=== PATIENT | female | born 1970 | race Caucasian/White ===

== ENCOUNTER 2016-08-04 14:27 | Inpatient (IN) | payer OTHER ==
[~2016-08-04] VITALS: Ht 168.9 cm; Wt 58.0 kg
[2016-08-04 15:19] VITALS: BP 118/71
--- NOTE | 2016-08-04 15:45 | DIAGNOSTIC IMAGING REPORT ---
PROCEDURE: XR CHEST 2 VIEW INDICATION: Pneumonia TECHNIQUE: PA and lateral views. COMPARISON: None. FINDINGS: There are bibasilar infiltrates. There is a right pleural effusion and a small left pleural effusion. Heart size is normal. IMPRESSION: 1. Bibasilar infiltrates and bilateral effusions
[2016-08-04] MEDS ORDERED: MIRAPEX0.25 MG PO (16:45)
[2016-08-04] MEDS ORDERED: PROAIR HFA IN (16:45)
[2016-08-04 18:43] VITALS: BP 96/52
--- NOTE | 2016-08-04 21:31 | HISTORY AND PHYSICAL ---
ADMITTED: 08/04/2016 CHIEF COMPLAINT: 1. Shortness of breath HISTORY OF PRESENT ILLNESS: The patient developed upper respiratory infection on 07/26/2016. She had increasing cough. She was seen at a walk-in clinic where a chest x-ray and flu test were apparently negative. This was at the [facility]/walk -in clinic. She was treated with albuterol MDI and a codeine cough syrup, which caused itching. She noted the cough became more productive after that. She has had worsening appetite and feeling nauseated off and on since that time. She has been taking fluids well, but not eating solids. She has been feeling increasingly weak. She notes chest pain with coughing and shortness of breath with any exertion. MEDICAL/SURGICAL HISTORY: Past medical history: Remarkable for restless legs syndrome. Past surgical history: Cervical laser surgery, wisdom tooth removal in 1987, hysterectomy 2006, D&C 2003, T&A 2003, breast implants. MEDICATIONS: 1. ProAir 1-2 puffs b.i.d. p.r.n. 2. Mirapex 0.125 mg p.o. at bedtime p.r.n. restless legs. ALLERGIES: 1. NARCOTICS. 2. CODEINE. SOCIAL HISTORY: female. [employer]. Works for [employer] at [employer]. Has 2 children and enjoys camping and soccer. FAMILY HISTORY: Mother has hypertension. Father has hyperlipidemia. One sister has hyperlipidemia. Maternal grandmother has breast cancer. REVIEW OF SYSTEMS: Remarkable for respiratory symptomatology as noted above. Neurologic: Negative for headache, seizures, coordination of balance, difficulty with vision. Denies blurry vision, double vision or scotoma. Hearing: Denies tinnitus, hearing loss, or ear pain. Cardiac: No chest pain is only pleuritic, otherwise does not have chest pain. Denies palpitations. No prior history of heart disease. No dizziness. Gastrointestinal: Positive for nausea and vomiting, denies diarrhea, constipation, bright red blood per rectum or melena. Genitourinary: Denies dysuria, hematuria, or other symptomatology. PHYSICAL EXAMINATION: VITAL SIGNS: Temperature 98.1, pulse 80, respirations 20, blood pressure 96/52, SaO2 91% on 2 L of oxygen. HEENT: Clear. NECK: Supple without adenopathy or thyromegaly. CHEST: Positive rhonchi diffusely with rales in both bases. Marked coughing on attempts to take deep breaths. HEART: Regular rate and rhythm without murmur. ABDOMEN: Positive bowel sounds. Soft, nontender, without hepatosplenomegaly or masses. BACK: Straight without CVA tenderness. EXTREMITIES: Without cyanosis, clubbing, or edema. NEUROLOGIC: Intact and symmetric. GENITAL: Deferred. RECTAL: Deferred. BREASTS: Deferred. LAB/IMAGING: Labs: WBC 18.5, hemoglobin 14.3, hematocrit 43.8, platelets 252,000. Differential reveals 56% neutrophils, 4% lymphocytes, 31% bands. Sodium 133, potassium 3.6, chloride 96, CO2 30, BUN 11, creatinine 1.0, glucose 115. AST 24, ALT 32, alk phos 93. Chest x-ray: Reveals bibasilar infiltrates and bilateral effusions. IMPRESSION: 1. Pneumonia, bibasilar. 2. History of restless legs syndrome. PLAN: Admit for IV antibiotics, IV hydration, IV pain control and antiemetics. Anticipate 2-3 day hospitalization.
[2016-08-04 22:44] VITALS: BP 100/53
[2016-08-05 02:36] VITALS: BP 112/68
[2016-08-05 06:54] VITALS: BP 113/74
--- NOTE | 2016-08-05 07:22 | Progress Note ---
Subjective General Patient admitted 08/04 with upper respiratory infection since 07/26/2016, seen at a walk-in clinic where a chest x-ray and flu test were apparently negative. This was at the [facility]/walk -in clinic, treated with albuterol MDI and a codeine cough syrup, which caused itching. Admitted with worsening cough, sob, streaks of blood in sputum, nausea and weakness. Through night patient has had persistent severe cough. Sleeping little with cough medication. Still nauseated. Not sob on O2. Physical Exam Vital Signs / I&Os Vital Signs Date Time Temp Pulse Resp B/P Pulse O2 O2 Flow FiO2 Ox Delivery Rate 08/05 0654 100.0 90 24 113/74 92 Nasal 2.0 Cannula 08/05 0236 97.9 77 22 112/68 95 Nasal 2.0 Cannula 08/05 0008 Nasal 2.0 Cannula 08/04 2244 98.6 82 18 100/53 90 Nasal 2.0 Cannula 08/04 1843 98.1 80 20 96/52 91 Nasal 2.0 Cannula 08/04 1700 Nasal 2.0 Cannula 08/04 1613 94 Nasal 2.0 Cannula 08/04 1519 98.6 84 20 118/71 90 Room Air I&O 08/04 0800 08/04 1600 08/05 0000 Intake Total 803 Output Total 1325 Balance -522 General Appearance Alert, Oriented X3, Cooperative Lungs Bilateral rhonchi and rales. Cardiovascular Regular rate and rhythm Abdomen Normal bowel sounds, Soft, No tenderness Extremities No edema Skin No Rashes LAB Results Laboratory Tests 08/04 08/05 1520 0530 Chemistry Plasma Sodium (136 - 145 mmol/L) 133 Plasma Potassium (3.5 - 5.1 mmol/L) 3.6 Plasma Chloride (98 - 107 mmol/L) 96 CO2 (Enzymatic) (21 - 32 mmol/L) 30 BUN (7 - 18 mg/dL) 11 Creatinine (0.6 - 1.3 mg/dL) 1.0 Est GFR ( Amer) (mL/min) >60 Est GFR (Non-Af Amer) (mL/min) >60 Glucose (70 - 110 mg/dL) 115 Plasma Calcium (8.5 - 10.1 mg/dL) 8.4 Plasma Magnesium (1.8 - 2.4 mg/dL) 2.4 Total Bilirubin (0.0 - 1.0 mg/dL) 0.6 AST (15 - 37 U/L) 24 ALT (12 - 78 U/L) 32 Alkaline Phosphatase (46 - 116 U/L) 93 Total Protein (6.4 - 8.2 g/dL) 7.2 Albumin (3.3 - 5.0 g/dL) 2.6 Hematology WBC (4.5 - 11.5 K/uL) 18.5 14.6 RBC (4.00 - 5.20 M/uL) 4.49 3.97 Hgb (12.0 - 16.0 gm/dL) 14.3 12.6 Hct (36.0 - 46.0 %) 43.8 38.3 MCV (80 - 100 fL) 97 97 MCH (26 - 34 pg) 32 32 RDW (11.6 - 14.8 %) 13.7 14.3 Neut % (Auto) (50 - 75 %) 56 21 Lymph % (Auto) (25 - 40 %) 4 18 [place] % (Auto) (3 - 14 %) 7 16 Eos % (Auto) (0 - 4 %) 1 1 Baso % (Auto) (0 - 2 %) 0 2 Band Neutrophils % (0 - 8 %) 31 42 Metamyelocytes % (0 - 1 %) 1 0 Myelocytes (0 - 1 %) 0 0 Other Cell Type 0 0 Toxic Granulation 1+ Plt Count, EDTA (150 - 400 K/uL) 252 282 RBC Morphology NORMAL Anisocytosis (manual) 1+ PUBS MCHC (31 - 37 g/dL) 33 33 Microbiology Date/Time Procedure - Status Source Growth 08/04 1630 Influenza Screen - COMP NASALPHAR Assessment and Plan Problem List 1. Pneumonia Plan On appropriate antibiotics.
[2016-08-05 10:43] VITALS: BP 94/59
[2016-08-05 14:10] VITALS: BP 105/69
[2016-08-05 18:30] VITALS: BP 107/72
[2016-08-05 22:44] VITALS: BP 104/66
[2016-08-06 02:59] VITALS: BP 121/81
[2016-08-06 07:19] VITALS: BP 107/77
[2016-08-06 11:44] VITALS: BP 106/78
[2016-08-06 14:26] VITALS: BP 114/77
[2016-08-06 18:40] VITALS: BP 119/82; BP 125/81
--- NOTE | 2016-08-06 20:41 | Progress Note ---
Subjective General Fevers have resolved. No chest pain. + cough and shortness of breath, but mildly improved. No abd pain. No constipation or diarrhea. Physical Exam Vital Signs / I&Os Vital Signs Date Time Temp Pulse Resp B/P Pulse O2 O2 Flow FiO2 Ox Delivery Rate 08/06 1840 37.2 91 21 119/82 91 Nasal 2.0 Cannula 08/06 1426 36.9 84 21 114/77 91 Nasal 2.0 Cannula 08/06 1144 36.8 72 21 106/78 93 Nasal 2.0 Cannula 08/06 1000 Nasal 2.0 Cannula 08/06 0800 2.0 08/06 0719 36.8 71 24 107/77 91 Nasal 2.0 Cannula 08/06 0259 37.1 88 20 121/81 93 Nasal 2.0 Cannula 08/06 0215 Nasal 2.0 Cannula 08/05 2244 36.8 72 20 104/66 95 Nasal 3.0 Cannula I&O 08/06 0000 08/05 1600 08/05 0800 Intake Total 480 2186 1228 Output Total 1650 1600 300 Balance -1170 586 928 General Appearance Alert, Oriented X3, Cooperative, No acute distress Lungs Course diffusely with wheezing in LUQ. Crackles in bilateral lung bases. Cardiovascular Regular rate and rhythm, Normal S1 and S2, No murmurs, gallops, rubs Abdomen Normal bowel sounds, Soft, No tenderness Extremities No edema Assessment and Plan Problem List 1. Pneumonia Plan Will add albuterol and duonebs. Staph on sputum culture, however, no risk factors. Patient clinically improved on current antibiotics. Contamination suspected. If worse, will start vanco, however, will monitor for now.
[2016-08-06 22:29] VITALS: BP 103/65
[2016-08-07 02:02] VITALS: BP 109/73
[2016-08-07 05:06] VITALS: BP 129/76
--- NOTE | 2016-08-07 07:46 | Progress Note ---
Subjective General 46YO FEMALE with pneumonia. Pt reports no improvement in severe cough with chest pain on coughing or deep breathing. Feeling nauseated this morning. Had severe palpitations with breathing treatment this morning which made her very anxious. She felt improved with a mask in place. SOB on getting up to bathroom and felt panicky with inability to get enough air. Physical Exam Vital Signs / I&Os Vital Signs Date Time Temp Pulse Resp B/P Pulse O2 O2 Flow FiO2 Ox Delivery Rate 08/07 0650 99.3 92 21 95 VentI-Mask 5.0 08/07 0506 103 22 129/76 88 Nasal 2.0 Cannula 08/07 0336 2.0 08/07 0202 99.0 62 16 109/73 92 Nasal 2.0 Cannula 08/06 2229 99.0 70 16 103/65 91 Nasal 2.0 Cannula 08/06 2049 2.0 08/06 1950 Nasal 2.0 Cannula 08/06 1840 99.0 91 21 119/82 91 Nasal 2.0 Cannula 08/06 1426 98.4 84 21 114/77 91 Nasal 2.0 Cannula 08/06 1144 98.2 72 21 106/78 93 Nasal 2.0 Cannula 08/06 1000 Nasal 2.0 Cannula 08/06 0800 2.0 I&O 08/06 0800 08/06 1600 08/07 0000 Intake Total 3778 823 8786 Output Total 900 1425 1200 Balance 402 -975 1034 General Appearance Alert, Mild distress Lungs Diffuse rhonchi and wheeze. Cardiovascular Regular rate and rhythm Abdomen Soft, No tenderness Extremities No edema Skin No Rashes Psych/Mental Status Anxious. LAB Results Laboratory Tests 08/07 0555 Chemistry Plasma Sodium (136 - 145 mmol/L) 137 Plasma Potassium (3.5 - 5.1 mmol/L) 3.4 Plasma Chloride (98 - 107 mmol/L) 102 CO2 (Enzymatic) (21 - 32 mmol/L) 27 BUN (7 - 18 mg/dL) 6 Creatinine (0.6 - 1.3 mg/dL) 0.8 Est GFR ( Amer) (mL/min) >60 Est GFR (Non-Af Amer) (mL/min) >60 Glucose (70 - 110 mg/dL) 99 Plasma Calcium (8.5 - 10.1 mg/dL) 7.7 Total Bilirubin (0.0 - 1.0 mg/dL) 0.4 AST (15 - 37 U/L) 33 ALT (12 - 78 U/L) 42 Alkaline Phosphatase (46 - 116 U/L) 74 Total Protein (6.4 - 8.2 g/dL) 5.3 Albumin (3.3 - 5.0 g/dL) 1.7 Hematology WBC (4.5 - 11.5 K/uL) 16.4 RBC (4.00 - 5.20 M/uL) 3.58 Hgb (12.0 - 16.0 gm/dL) 11.4 Hct (36.0 - 46.0 %) 34.6 MCV (80 - 100 fL) 97 MCH (26 - 34 pg) 32 RDW (11.6 - 14.8 %) 14.3 Plt Count, EDTA (150 - 400 K/uL) 369 PUBS MCHC (31 - 37 g/dL) 33 Assessment and Plan Problem List 1. Pneumonia Plan CXR today and start vancomycin to cover staph as pt is not improved. Will discuss nebulized treatments with RT to minimize tachycardia.
--- NOTE | 2016-08-07 10:14 | DIAGNOSTIC IMAGING REPORT ---
PROCEDURE: XR CHEST 2 VIEW INDICATION: pneumonia, follow-up TECHNIQUE: PA and lateral view. COMPARISON: None. FINDINGS: Progression of large right and moderate left basilar pneumonia with small pleural effusions bilaterally. Patchy infiltrate in the left upper lobe. Heart size and part vessels are normal. The bones are unremarkable. IMPRESSION: 1. Progression of bibasilar pneumonia with small pleural effusions
[2016-08-07 11:12] VITALS: BP 106/73
[2016-08-07 14:31] VITALS: BP 109/70
[2016-08-07 18:17] VITALS: BP 110/71
[2016-08-07 23:00] VITALS: BP 123/76
[2016-08-08 06:43] VITALS: BP 120/76
[2016-08-08 10:15] VITALS: BP 114/67
[2016-08-08 15:00] VITALS: BP 124/67
[2016-08-08 18:39] VITALS: BP 129/66
--- NOTE | 2016-08-08 20:09 | Progress Note ---
Subjective General 46yo female with pneumonia and MRSA positive sputum culture. Biofire test done today due to flu like pattern of illness but it was negative. Pt feels slight improvement overall but still coughing and sob. Some puffiness in feet. Physical Exam Vital Signs / I&Os Vital Signs Date Time Temp Pulse Resp B/P Pulse O2 O2 Flow FiO2 Ox Delivery Rate 08/08 1839 97.7 82 20 129/66 96 Nasal 4.0 Cannula 08/08 1500 97.7 87 20 124/67 92 Mask 4.0 08/08 1015 97.3 71 22 114/67 94 Mask 7.0 08/08 1007 6.0 08/08 0643 98.1 67 22 120/76 91 Mask 7.0 08/07 2330 Mask 7.0 08/07 2300 98.4 89 22 123/76 93 Mask 7.0 08/07 2128 7.0 I&O 08/07 0800 08/07 1600 08/08 0000 Intake Total 1627 1490 938 Output Total 750 2000 1200 Balance 877 -510 -262 General Appearance Alert, Oriented X3, Cooperative, Mild distress Lungs Diffuse rhonchi. Cardiovascular Regular rate and rhythm Abdomen Normal bowel sounds, Soft, No tenderness Extremities No edema LAB Results Laboratory Tests 08/08 08/08 0540 0830 Chemistry Plasma Sodium (136 - 145 mmol/L) 136 Plasma Potassium (3.5 - 5.1 mmol/L) 4.6 Plasma Chloride (98 - 107 mmol/L) 103 CO2 (Enzymatic) (21 - 32 mmol/L) 25 BUN (7 - 18 mg/dL) 8 Creatinine (0.6 - 1.3 mg/dL) 0.7 Est GFR ( Amer) (mL/min) >60 Est GFR (Non-Af Amer) (mL/min) >60 Glucose (70 - 110 mg/dL) 229 Plasma Calcium (8.5 - 10.1 mg/dL) 7.8 Total Bilirubin (0.0 - 1.0 mg/dL) 0.3 AST (15 - 37 U/L) 78 ALT (12 - 78 U/L) 76 Alkaline Phosphatase (46 - 116 U/L) 76 Total Protein (6.4 - 8.2 g/dL) 5.1 Albumin (3.3 - 5.0 g/dL) 1.8 Hematology WBC (4.5 - 11.5 K/uL) 16.8 RBC (4.00 - 5.20 M/uL) 3.79 Hgb (12.0 - 16.0 gm/dL) 11.9 Hct (36.0 - 46.0 %) 36.8 MCV (80 - 100 fL) 97 MCH (26 - 34 pg) 32 RDW (11.6 - 14.8 %) 14.9 Neut % (Auto) (50 - 75 %) 80 Lymph % (Auto) (25 - 40 %) 8 [place] % (Auto) (3 - 14 %) 3 Eos % (Auto) (0 - 4 %) 0 Baso % (Auto) (0 - 2 %) 0 Band Neutrophils % (0 - 8 %) 7 Metamyelocytes % (0 - 1 %) 1 Myelocytes (0 - 1 %) 1 Other Cell Type 0 Plt Count, EDTA (150 - 400 K/uL) 421 PUBS MCHC (31 - 37 g/dL) 33 Toxicology Vancomycin Trough (10.0 - 20.0 ug/mL) 17.8 Assessment and Plan Problem List 1. Pneumonia Plan Continue antibiotics and repeat labs in AM. PICC line ordered.
[2016-08-08 22:15] VITALS: BP 117/80
[2016-08-09 02:50] VITALS: BP 122/77
[2016-08-09 06:20] VITALS: BP 126/77
[2016-08-09 11:00] VITALS: BP 126/58
--- NOTE | 2016-08-09 11:35 | DIAGNOSTIC IMAGING REPORT ---
PROCEDURE: XR CHEST 1 VIEW INDICATION: PICC LINE PLACEMENT, initial encounter TECHNIQUE: Portable AP view 11:09 a.m. COMPARISON: Chest x-ray 08/07/2016 FINDINGS: Interval placement of a left PICC line with the distal end in the SVC but with an L-shaped bend 3 cm from the tip. Moderate bibasilar infiltrates , right greater than left with small bilateral pleural effusions, unchanged. Diffuse increased interstitial markings. Bones are unremarkable . IMPRESSION: 1. Left PICC line in satisfactory position but with an L-shaped bend distally, which may or may not be functional. 2. Bilateral pneumonia and pleural effusions 3. Results discussed with respiratory (Keegan) .
--- NOTE | 2016-08-09 14:01 | Progress Note ---
Subjective General Feels improved by tomorrow. Taking po ok, but still decreased. no nausea, vomitting, diarrhea, constipation. No abd pain. Coughing significantly improved. Physical Exam Vital Signs / I&Os Vital Signs Date Time Temp Pulse Resp B/P Pulse O2 O2 Flow FiO2 Ox Delivery Rate 08/09 1323 Nasal 4.0 Cannula 08/09 1102 62 20 92 Nasal 4.0 Cannula 08/09 1100 36.6 93 22 126/58 87 Nasal 4.0 Cannula 08/09 0800 4.0 08/09 0643 93 Nasal 4.0 Cannula 08/09 0620 36.6 64 20 126/77 95 Mask 4.0 08/09 0250 36.8 71 22 122/77 95 Mask 4.0 08/09 0239 Mask 4.0 08/09 0058 93 Mask 4.0 08/08 2215 36.5 66 20 117/80 91 Mask 4.0 08/08 1839 36.5 82 20 129/66 96 Nasal 4.0 Cannula 08/08 1630 Mask 4.0 08/08 1500 36.5 87 20 124/67 92 Mask 4.0 I&O 08/09 0000 08/08 1600 08/08 0800 Intake Total 1808 1640 1112 Output Total 1900 1750 1600 Balance -92 -110 -488 General Appearance Alert, Oriented X3, Cooperative, No acute distress Lungs Crackles and wheezing in bilateral lower ernandez posteriorly. Cardiovascular Regular rate and rhythm, Normal S1 and S2, No murmurs, gallops, rubs Abdomen Normal bowel sounds, Soft, No tenderness Extremities No edema Assessment and Plan Problem List 1. MRSA (methicillin resistant staphylococcus aureus) pneumonia Plan Signifcant worsening WBC today likely from steroids. Patient clinically improved. yeast in sputum culture. Will treat empirically. Will try to decrease steroids, however, if worse, will increase steroids again. 2. Yeast infection Plan Started antifungal.
[2016-08-09 14:22] VITALS: BP 123/67
--- NOTE | 2016-08-09 16:26 | DIAGNOSTIC IMAGING REPORT ---
PROCEDURE: XR CHEST 1 VIEW INDICATION: PICC ADJUSTMENT TECHNIQUE: Portable AP view 04:06 p.m. COMPARISON: Chest x-ray 08/09/2016 11:09 a.m. FINDINGS: Left PICC line has been adjusted with the tip at the SVC/right atrial junction. Previously noted kink has resolved. No changes in the bilateral pneumonia and pleural effusions. IMPRESSION: 1. Left PICC line in satisfactory position to 2. Bilateral pneumonia and pleural effusions 3. Results discussed with respiratory (Tito) .
[2016-08-09 18:01] VITALS: BP 120/80
[2016-08-09 22:06] VITALS: BP 124/76
[2016-08-10 02:04] VITALS: BP 140/86
[2016-08-10 06:41] VITALS: BP 125/77
--- NOTE | 2016-08-10 07:24 | Progress Note ---
Subjective General 46yo female with pneumonia and MRSA positive sputum culture. Biofire test done today due to flu like pattern of illness but it was negative. Cough is now nonproductive but still frequent and painful. Hurts in anterior mid chest and below shoulder blades with cough. Denies nausea. Some diarrhea last night. Physical Exam Vital Signs / I&Os Vital Signs Date Time Temp Pulse Resp B/P Pulse O2 O2 Flow FiO2 Ox Delivery Rate 08/10 0641 97.3 55 18 125/77 93 Nasal 4.0 Cannula 08/10 0305 Nasal 4.0 Cannula 08/10 0204 97.7 63 20 140/86 95 Nasal 4.0 Cannula 08/09 2206 97.5 49 16 124/76 94 Nasal 4.0 Cannula 08/09 1801 97.5 70 24 120/80 95 Nasal 4.0 Cannula 08/09 1615 Nasal 4.0 Cannula 08/09 1422 97.3 56 20 123/67 93 Nasal 4.0 Cannula 08/09 1323 Nasal 4.0 Cannula 08/09 1102 62 20 92 Nasal 4.0 Cannula 08/09 1100 97.9 93 22 126/58 87 Nasal 4.0 Cannula 08/09 0800 4.0 I&O 08/09 0800 08/09 1600 08/10 0000 Intake Total 1282 633 952 Output Total 1200 1010 1700 Balance 82 -377 -748 General Appearance Alert, Oriented X3, Cooperative Lungs Bilateral rhonchi still. Cardiovascular Regular rate and rhythm Abdomen Normal bowel sounds, Soft, No tenderness Extremities No edema Skin No Rashes LAB Results Laboratory Tests 08/09 08/09 08/10 0745 0745 0600 Chemistry Plasma Sodium (136 - 145 mmol/L) 138 138 Plasma Potassium (3.5 - 5.1 mmol/L) 4.3 4.3 Plasma Chloride (98 - 107 mmol/L) 104 105 CO2 (Enzymatic) (21 - 32 mmol/L) 26 26 BUN (7 - 18 mg/dL) 11 13 Creatinine (0.6 - 1.3 mg/dL) 0.8 0.8 Est GFR ( Amer) (mL/min) >60 >60 Est GFR (Non-Af Amer) (mL/min) >60 >60 Glucose (70 - 110 mg/dL) 131 132 Hemoglobin A1c % (4.5 - 6.2 %) 5.7 Plasma Calcium (8.5 - 10.1 mg/dL) 8.2 8.0 Plasma Magnesium (1.8 - 2.4 mg/dL) 2.0 Total Bilirubin (0.0 - 1.0 mg/dL) 0.3 0.3 AST (15 - 37 U/L) 109 63 ALT (12 - 78 U/L) 128 131 Alkaline Phosphatase (46 - 116 U/L) 69 64 Total Protein (6.4 - 8.2 g/dL) 5.4 5.3 Albumin (3.3 - 5.0 g/dL) 1.8 1.8 Hematology WBC (4.5 - 11.5 K/uL) 24.7 19.1 RBC (4.00 - 5.20 M/uL) 3.63 3.67 Hgb (12.0 - 16.0 gm/dL) 11.6 11.7 Hct (36.0 - 46.0 %) 35.2 35.6 MCV (80 - 100 fL) 97 97 MCH (26 - 34 pg) 32 32 RDW (11.6 - 14.8 %) 14.6 14.1 Neut % (Auto) (50 - 75 %) 89 93.2 Lymph % (Auto) (25 - 40 %) 7 4.2 [place] % (Auto) (3 - 14 %) 1 2.5 Eos % (Auto) (0 - 4 %) 0 0 Baso % (Auto) (0 - 2 %) 0 0.1 Band Neutrophils % (0 - 8 %) 1 Metamyelocytes % (0 - 1 %) 1 Myelocytes (0 - 1 %) 1 Other Cell Type 0 Plt Count, EDTA (150 - 400 K/uL) 445 432 Hypochromic-Microcytic 2+ PUBS MCHC (31 - 37 g/dL) 33 33 Assessment and Plan Problem List 1. Pneumonia Plan Continue antibiotics. Encouraging changes in WBC, calming pulse and decreased O2 demand noted. 2. MRSA (methicillin resistant staphylococcus aureus) pneumonia Plan Continue vanco. 3. Yeast infection Plan Antifungal treatment started.
[2016-08-10 10:41] VITALS: BP 124/72
[2016-08-10 14:44] VITALS: BP 125/84
[2016-08-10 18:40] VITALS: BP 120/80
[2016-08-10 22:37] VITALS: BP 152/88
[2016-08-11 02:52] VITALS: BP 125/77
[2016-08-11 07:11] VITALS: BP 128/84
[2016-08-11 10:38] VITALS: BP 123/79
[2016-08-11 14:40] VITALS: BP 118/72
--- NOTE | 2016-08-11 14:54 | Progress Note ---
Subjective General 46yo female with pneumonia and MRSA positive sputum culture. Biofire test done today due to flu like pattern of illness but it was negative. Cough is now nonproductive but still frequent and painful. Hurts in anterior mid chest and below shoulder blades with cough. Feeling improved overal, sitting up straighter , smiling and talking more. Still hurts to cough though. Physical Exam Vital Signs / I&Os Vital Signs Date Time Temp Pulse Resp B/P Pulse O2 O2 Flow FiO2 Ox Delivery Rate 08/11 1440 97.7 75 16 118/72 95 Nasal 4.0 Cannula 08/11 1038 97.5 52 16 123/79 95 Nasal 4.0 Cannula 08/11 1020 4.0 08/11 0711 97.9 54 16 128/84 96 Nasal 4.0 Cannula 08/11 0252 98.4 57 16 125/77 93 Nasal 4.0 Cannula 08/11 0056 Nasal 4.0 Cannula 08/10 2237 97.9 64 16 152/88 97 Nasal 4.0 Cannula 08/10 2221 4.0 08/10 1840 98.4 68 20 120/80 96 Nasal 4.0 Cannula I&O 08/10 0800 08/10 1600 08/11 0000 Intake Total 1131 240 765 Output Total 1600 3600 2000 Balance -469 -3360 -1235 General Appearance Alert, Oriented X3, Cooperative Lungs Few crackles bilaterally without wheezes. Cardiovascular Regular rate and rhythm Abdomen Normal bowel sounds, Soft, No tenderness Extremities No edema Skin No Rashes LAB Results Laboratory Tests 08/11 08/11 0608 0830 Chemistry Plasma Sodium (136 - 145 mmol/L) 141 Plasma Potassium (3.5 - 5.1 mmol/L) 4.2 Plasma Chloride (98 - 107 mmol/L) 106 CO2 (Enzymatic) (21 - 32 mmol/L) 26 BUN (7 - 18 mg/dL) 12 Creatinine (0.6 - 1.3 mg/dL) 0.7 Est GFR ( Amer) (mL/min) >60 Est GFR (Non-Af Amer) (mL/min) >60 Glucose (70 - 110 mg/dL) 116 Plasma Calcium (8.5 - 10.1 mg/dL) 7.6 Plasma Magnesium (1.8 - 2.4 mg/dL) 2.1 Total Bilirubin (0.0 - 1.0 mg/dL) 0.4 AST (15 - 37 U/L) 43 ALT (12 - 78 U/L) 110 Alkaline Phosphatase (46 - 116 U/L) 57 Total Protein (6.4 - 8.2 g/dL) 4.7 Albumin (3.3 - 5.0 g/dL) 1.9 Hematology WBC (4.5 - 11.5 K/uL) 15.8 RBC (4.00 - 5.20 M/uL) 3.78 Hgb (12.0 - 16.0 gm/dL) 11.9 Hct (36.0 - 46.0 %) 36.8 MCV (80 - 100 fL) 98 MCH (26 - 34 pg) 32 RDW (11.6 - 14.8 %) 14.5 Neut % (Auto) (50 - 75 %) 88 Lymph % (Auto) (25 - 40 %) 5 [place] % (Auto) (3 - 14 %) 6 Eos % (Auto) (0 - 4 %) 0 Baso % (Auto) (0 - 2 %) 0 Band Neutrophils % (0 - 8 %) 1 Metamyelocytes % (0 - 1 %) 0 Myelocytes (0 - 1 %) 0 Other Cell Type 0 Plt Count, EDTA (150 - 400 K/uL) 462 PUBS MCHC (31 - 37 g/dL) 32 Toxicology Vancomycin Trough (10.0 - 20.0 ug/mL) 13.6 Assessment and Plan Problem List 1. Pneumonia Plan Improving with antibiotics. 2. MRSA (methicillin resistant staphylococcus aureus) pneumonia Plan On vancomycin and improving. 3. Yeast infection Plan On diflucan and clinically improved.
[2016-08-11 18:29] VITALS: BP 128/75
[2016-08-11 22:30] VITALS: BP 119/68
[2016-08-12 02:53] VITALS: BP 118/69
--- NOTE | 2016-08-12 05:58 | DIAGNOSTIC IMAGING REPORT ---
PROCEDURE: XR CHEST 2 VIEW INDICATION: Follow up pneumonia. TECHNIQUE: PA and lateral views. COMPARISON: Compared to chest x-rays on 08/09/2016, 08/07/2016, and 08/04/2016. FINDINGS: There is mild to moderate improvement with resolving of bibasilar pneumonia with moderate residual change at the right lung base with mild changes at the left lung base. Small right pleural effusion. Left PIC line in superior vena cava. Heart and mediastinum are normal. Thorax is normal. IMPRESSION: 1. Mild to moderate improvement with resolving bibasilar pneumonia.
[2016-08-12 06:41] VITALS: BP 123/79
[2016-08-12 10:25] VITALS: BP 114/66
--- NOTE | 2016-08-12 14:14 | Progress Note ---
Subjective General 46yo female with pneumonia and MRSA positive sputum culture. Biofire test done today due to flu like pattern of illness but it was negative. Coughing a bit less. O2 need is decreasing slowly. Ambulated in [place] but got very dyspneic with walking the whole loop. Now recovered. Denies nausea or pain. Coughing still hurts.. Physical Exam Vital Signs / I&Os Vital Signs Date Time Temp Pulse Resp B/P Pulse O2 O2 Flow FiO2 Ox Delivery Rate 08/12 1205 3.0 08/12 1128 3.0 08/12 1025 97.7 84 18 114/66 96 Nasal 4.0 Cannula 08/12 0641 97.9 50 18 123/79 95 Nasal 4.0 Cannula 08/12 0253 98.2 55 16 118/69 95 Nasal 4.0 Cannula 08/11 2230 98.2 50 16 119/68 95 Nasal 4.0 Cannula 08/11 2204 4.0 08/11 2118 Nasal 4.0 Cannula 08/11 1829 98.1 60 18 128/75 99 Nasal 4.0 Cannula 08/11 1440 97.7 75 16 118/72 95 Nasal 4.0 Cannula I&O 08/11 0800 08/11 1600 08/12 0000 Intake Total 1537 1560 1790 Output Total 2400 2700 1500 Balance -863 -1140 290 General Appearance Alert, Oriented X3, Cooperative, No acute distress Lungs Few rhonchi. Catches with trying to take a deep breath. Cardiovascular Regular rate and rhythm Abdomen Normal bowel sounds, Soft, No tenderness Extremities No edema LAB Results Laboratory Tests 08/12 0520 Chemistry Plasma Sodium (136 - 145 mmol/L) 141 Plasma Potassium (3.5 - 5.1 mmol/L) 4.0 Plasma Chloride (98 - 107 mmol/L) 106 CO2 (Enzymatic) (21 - 32 mmol/L) 26 BUN (7 - 18 mg/dL) 12 Creatinine (0.6 - 1.3 mg/dL) 0.6 Est GFR ( Amer) (mL/min) >60 Est GFR (Non-Af Amer) (mL/min) >60 Glucose (70 - 110 mg/dL) 109 Plasma Calcium (8.5 - 10.1 mg/dL) 7.7 Total Bilirubin (0.0 - 1.0 mg/dL) 0.4 AST (15 - 37 U/L) 29 ALT (12 - 78 U/L) 99 Alkaline Phosphatase (46 - 116 U/L) 57 Total Protein (6.4 - 8.2 g/dL) 5.0 Albumin (3.3 - 5.0 g/dL) 2.0 Hematology WBC (4.5 - 11.5 K/uL) 14.1 RBC (4.00 - 5.20 M/uL) 4.50 Hgb (12.0 - 16.0 gm/dL) 14.2 Hct (36.0 - 46.0 %) 43.7 MCV (80 - 100 fL) 97 MCH (26 - 34 pg) 32 RDW (11.6 - 14.8 %) 14.6 Neut % (Auto) (50 - 75 %) 91.9 Lymph % (Auto) (25 - 40 %) 5.4 [place] % (Auto) (3 - 14 %) 2.5 Eos % (Auto) (0 - 4 %) 0.1 Baso % (Auto) (0 - 2 %) 0.1 Plt Count, EDTA (150 - 400 K/uL) 422 PUBS MCHC (31 - 37 g/dL) 33 Assessment and Plan Problem List 1. Pneumonia Plan Improving steadily. 2. MRSA (methicillin resistant staphylococcus aureus) pneumonia Plan On appropriate antibiotic, vancomycin.
[2016-08-12 15:00] VITALS: BP 115/83
[2016-08-12 19:00] VITALS: BP 127/79
[2016-08-12 22:55] VITALS: BP 120/70
[2016-08-13 02:26] VITALS: BP 119/73
[2016-08-13 07:10] VITALS: BP 116/67
--- NOTE | 2016-08-13 08:21 | Progress Note ---
Subjective General 46yo female with pneumonia and MRSA positive sputum culture. Biofire test done today due to flu like pattern of illness but it was negative. Coughing a bit less. O2 need is decreasing slowly. Ambulated in [place] YESTERDAY but got very dyspneic with walking the whole loop. Today feels tired, slept poorly. Persistent cough. Denies CP, nausea or abdominal pain. Still has pain with coughing. Physical Exam Vital Signs / I&Os Vital Signs Date Time Temp Pulse Resp B/P Pulse O2 O2 Flow FiO2 Ox Delivery Rate 08/13 0710 98.1 104 16 116/67 96 Nasal 3.0 Cannula 08/13 0226 97.5 49 16 119/73 95 Nasal 3.0 Cannula 08/12 2255 97.9 47 16 120/70 96 Nasal 3.0 Cannula 08/12 2146 Nasal 3.0 Cannula 08/12 1915 3.0 08/12 1900 97.3 65 18 127/79 98 Nasal 3.0 Cannula 08/12 1500 98.1 67 18 115/83 97 Nasal 3.0 Cannula 08/12 1205 3.0 08/12 1128 3.0 08/12 1025 97.7 84 18 114/66 96 Nasal 4.0 Cannula I&O 08/12 0800 08/12 1600 08/13 0000 Intake Total 1433 1316 850 Output Total 0117 147 8601 Balance 433 1066 -900 General Appearance Alert, Oriented X3, Cooperative Lungs Few rhonchi bilaterally. Cardiovascular Regular rate and rhythm Abdomen Soft, No tenderness Extremities No edema Skin No Rashes LAB Results Laboratory Tests 08/13 06 Chemistry Plasma Sodium (136 - 145 mmol/L) 138 Plasma Potassium (3.5 - 5.1 mmol/L) 4.5 Plasma Chloride (98 - 107 mmol/L) 103 CO2 (Enzymatic) (21 - 32 mmol/L) 31 BUN (7 - 18 mg/dL) 11 Creatinine (0.6 - 1.3 mg/dL) 0.7 Est GFR ( Amer) (mL/min) >60 Est GFR (Non-Af Amer) (mL/min) >60 Glucose (70 - 110 mg/dL) 106 Plasma Calcium (8.5 - 10.1 mg/dL) 8.3 Total Bilirubin (0.0 - 1.0 mg/dL) 0.3 AST (15 - 37 U/L) 23 ALT (12 - 78 U/L) 97 Alkaline Phosphatase (46 - 116 U/L) 55 Total Protein (6.4 - 8.2 g/dL) 5.0 Albumin (3.3 - 5.0 g/dL) 2.1 Hematology WBC (4.5 - 11.5 K/uL) 18.7 RBC (4.00 - 5.20 M/uL) 4.06 Hgb (12.0 - 16.0 gm/dL) 12.7 Hct (36.0 - 46.0 %) 39.7 MCV (80 - 100 fL) 98 MCH (26 - 34 pg) 31 RDW (11.6 - 14.8 %) 14.3 Neut % (Auto) (50 - 75 %) 93.2 Lymph % (Auto) (25 - 40 %) 4.8 [place] % (Auto) (3 - 14 %) 2.0 Eos % (Auto) (0 - 4 %) 0 Baso % (Auto) (0 - 2 %) 0 Plt Count, EDTA (150 - 400 K/uL) 491 PUBS MCHC (31 - 37 g/dL) 32 Assessment and Plan Problem List 1. Pneumonia Plan Improving with antibiotics. 2. MRSA (methicillin resistant staphylococcus aureus) pneumonia Plan Continue vancomycin. Anticipate home on Bactrim in 1-2 days. Had hoped for discharge today but pt has worrisome increase in WBC and became very fatigued with ambulation yesterday. Will defer discharge.
[2016-08-13 10:03] VITALS: BP 105/63
[2016-08-13 15:00] VITALS: BP 124/75
[2016-08-13 19:54] VITALS: BP 113/69
[2016-08-14 01:17] VITALS: BP 119/72
--- NOTE | 2016-08-14 06:10 | Progress Note ---
Subjective General Patient states that she is feeling a little better. Really wiped out the other day when walking around the floor. Had increase in WBC yesterday. Feels much better than admit. Less sputum production. Physical Exam Vital Signs / I&Os Vital Signs Date Time Temp Pulse Resp B/P Pulse O2 O2 Flow FiO2 Ox Delivery Rate 08/14 0555 Nasal 2.0 Cannula 08/14 0117 98.1 50 16 119/72 97 Nasal 2.0 Cannula 08/13 1954 97.5 63 16 113/69 99 Nasal 2.0 Cannula 08/13 1753 Nasal 2.0 Cannula 08/13 1500 98.1 62 16 124/75 99 Nasal 3.0 Cannula 08/13 1003 97.9 87 16 105/63 97 Nasal 3.0 Cannula 08/13 0924 Nasal 3.0 Cannula 08/13 0800 3.0 08/13 0710 98.1 104 16 116/67 96 Nasal 3.0 Cannula I&O 08/14 0000 08/13 1600 08/13 0800 Intake Total 876 1360 1219 Output Total 030 822 4728 Balance 76 760 -381 General Appearance Alert, Cooperative HEENT O2 NC Lungs coarse BS non focal Cardiovascular Regular rate and rhythm, No murmurs, gallops, rubs Abdomen Soft, No tenderness Extremities No edema LAB Results Laboratory Tests 08/14 0545 Chemistry Plasma Sodium Pending Plasma Potassium Pending Plasma Chloride Pending CO2 (Enzymatic) Pending BUN Pending Creatinine Pending Est GFR ( Amer) Pending Est GFR (Non-Af Amer) Pending Glucose Pending Plasma Calcium Pending Total Bilirubin Pending AST Pending ALT Pending Alkaline Phosphatase Pending Total Protein Pending Albumin Pending Hematology WBC (4.5 - 11.5 K/uL) 14.6 RBC (4.00 - 5.20 M/uL) 4.10 Hgb (12.0 - 16.0 gm/dL) 12.9 Hct (36.0 - 46.0 %) 39.9 MCV (80 - 100 fL) 97 MCH (26 - 34 pg) 31 RDW (11.6 - 14.8 %) 14.5 Neut % (Auto) (50 - 75 %) 92.8 Lymph % (Auto) (25 - 40 %) 4.0 [place] % (Auto) (3 - 14 %) 2.9 Eos % (Auto) (0 - 4 %) 0.1 Baso % (Auto) (0 - 2 %) 0.2 Plt Count, EDTA (150 - 400 K/uL) 458 PUBS MCHC (31 - 37 g/dL) 32 Assessment and Plan Problem List 1. Pneumonia Plan Will continue wtih IV abx until CXR and labs improved then change to PO and wait 24 hrs prior to d/c 2. MRSA (methicillin resistant staphylococcus aureus) pneumonia Plan Change to bactrim when PO abx due.
[2016-08-14 06:53] VITALS: BP 114/70
--- NOTE | 2016-08-14 09:13 | DIAGNOSTIC IMAGING REPORT ---
PROCEDURE: XR CHEST 2 VIEW INDICATION: pneumonia, follow-up TECHNIQUE: PA and lateral view. COMPARISON: Chest x-ray 08/12/2016 FINDINGS: Marked improvement of the mild residual bibasilar pneumonia and small pleural effusions. Heart size, mediastinum and pulmonary vessels are normal. Bones are unremarkable. Stable left PICC line in the SVC. IMPRESSION: 1. Markedly improved mild residual bibasilar pneumonia and pleural effusions
[2016-08-14 11:01] VITALS: BP 109/61
[2016-08-14 14:50] VITALS: BP 131/69
[2016-08-14 18:10] VITALS: BP 114/76
[2016-08-14 22:15] VITALS: BP 109/87
[2016-08-15 03:29] VITALS: BP 116/69
[2016-08-15 06:26] VITALS: BP 113/66
--- NOTE | 2016-08-15 06:44 | Progress Note ---
Subjective General Patient states that she is doing better. Has been with cough that is stable. Has no cp,sob off of O2 NC. Would like to d/c home Physical Exam Vital Signs / I&Os Vital Signs Date Time Temp Pulse Resp B/P Pulse O2 O2 Flow FiO2 Ox Delivery Rate 08/15 06 98.1 73 16 113/66 94 Room Air 08/15 0329 97.9 70 16 116/69 95 Room Air 08/14 2220 Room Air 08/14 2215 98.1 70 16 109/87 95 Room Air 08/14 1810 97.3 83 16 114/76 96 Nasal 1.0 Cannula 08/14 1450 97.9 56 16 131/69 94 Nasal 1.0 Cannula 08/14 1101 Nasal 1.0 Cannula 08/14 1101 97.9 80 16 109/61 96 Nasal 1.0 Cannula 08/14 0653 97.5 52 16 114/70 95 Nasal 1.0 Cannula I&O 08/15 0000 07 1600 08/14 0800 Intake Total 500 840 600 Output Total 2000 900 2300 Balance -1500 -60 -1700 General Appearance Alert, Oriented X3, Cooperative Lungs Clear to auscultation, Normal air movement Cardiovascular Regular rate and rhythm, Normal S1 and S2 Abdomen Soft, No tenderness Extremities No edema, Picc line in L arm LAB Results Laboratory Tests 08/15 0547 Hematology WBC (4.5 - 11.5 K/uL) 15.0 RBC (4.00 - 5.20 M/uL) 4.18 Hgb (12.0 - 16.0 gm/dL) 13.2 Hct (36.0 - 46.0 %) 40.6 MCV (80 - 100 fL) 97 MCH (26 - 34 pg) 32 RDW (11.6 - 14.8 %) 15.0 Neut % (Auto) (50 - 75 %) 91.6 Lymph % (Auto) (25 - 40 %) 4.9 [place] % (Auto) (3 - 14 %) 3.4 Eos % (Auto) (0 - 4 %) 0 Baso % (Auto) (0 - 2 %) 0.1 Plt Count, EDTA (150 - 400 K/uL) 411 PUBS MCHC (31 - 37 g/dL) 33 Assessment and Plan Problem List 1. Pneumonia Plan Has pneumonia that is improving. Off of IV abx, wbc a little high still. Will d/c home and follow up soon in the clinic. 2. MRSA (methicillin resistant staphylococcus aureus) pneumonia Plan Patient is improving. Will have her follow up in clinic in a couple.
[2016-08-15] MEDS ORDERED: SMZ-TMP DS1 TAB PO (06:47)
--- NOTE | 2016-08-15 10:34 | Provider's Discharge Care Plan ---
Problem, Goal, Plan Problem List 1. Pneumonia Instructions: Follow up as directed, Take meds as directed 2. MRSA (methicillin resistant staphylococcus aureus) pneumonia
--- NOTE | 2016-08-15 10:34 | Provider's Discharge Care Plan ---
Problem, Goal, Plan Problem List 1. Pneumonia Instructions: Follow up as directed, Take meds as directed 2. MRSA (methicillin resistant staphylococcus aureus) pneumonia
--- NOTE | 2016-08-21 01:10 | DISCHARGE SUMMARY ---
ADMIT DATE: 08/04/2016 DISCHARGE DATE: 08/15/2016 ADMITTING DIAGNOSES: 1. Pneumonia. 2. Lymphocytosis 3. History of restless leg syndrome DISCHARGE DIAGNOSES: 1. Methicillin resistant Staphylococcus aureus pneumonia 2. Lymphocytosis 3. History of restless leg syndrome BRIEF HISTORY: Please refer to the admit dictation for details, but this is a 46 -year-old female who presented to the emergency department with shortness of breath and pneumonia. HOSPITAL COURSE: She was treated with IV antibiotics. Cultures came back showing worsening methicillin resistant Staphylococcus aureus pneumonia. She initially worsened, had very elevated white counts, was treated with IV antibiotics and switched to a PICC line and slowly progressed with her pneumonia. At the time of discharge, she was feeling better. Her white count was improving. Her temperature was 98.1, heart rate of 73, respirations 16, blood pressure 113/66, and 94% saturation on room air. She was discharged to home. DISCHARGE INSTRUCTIONS/MEDICATIONS: Discharge medications include Bactrim-DS 1 p.o. b.i.d., albuterol 2 puffs q.4 hours p.r.n., Mirapex 0.125 mg p.o. at bedtime. The patient to follow up in clinic within the next week for a recheck and to continue with medications. At time of discharge, she was feeling better and look forward to going home.
== END 2016-08-15 11:30 | disposition home or self-care (01) | DRG 177 ==
LOC: TRANS SRH 14:27 → ACUTE2 SRH 14:27
PROVIDERS: ADMIT Family Medicine
PROC: 02HV33Z Insertion of Infusion Device into Superior Vena Cava, Percutaneous Approach (ICD-10-PCS; principal; 2016-08-09)
DX: J15.212 Pneumonia due to Methicillin resistant Staphylococcus aureus (principal); B37.1 Pulmonary candidiasis; D72.820 Lymphocytosis (symptomatic); G25.81 Restless legs syndrome
CPT/HCPCS: 83463; 90065; 90070; 90074; 90098; 90100; 90127; 90309; 91286; 91400; 91583; 91643; 91672; 92720; 94139; 94140; 94141; 95059

== ENCOUNTER 2016-09-20 12:49 | Outpatient (CLI) | payer OTHER ==
[~2016-09-20 12:49] MED LIST: MIRAPEX0.25 MG PO; PROAIR HFA IN; SMZ-TMP DS1 TAB PO
--- NOTE | 2016-09-20 13:20 | DIAGNOSTIC IMAGING REPORT ---
PROCEDURE: XR CHEST 2 VIEW INDICATION: PNEUMONIA TECHNIQUE: PA and lateral views. COMPARISON: Chest 08/14/2016 and 08/09/2016 FINDINGS: Resolution of right lower lobe infiltrate and pleural effusions. Lungs are clear. Heart and mediastinum are normal. Thorax is normal. IMPRESSION: 1. Resolution of infiltrate and effusions. Lungs clear.
== END 2016-09-20 23:00 ==
LOC: XR SRH 12:49
DX: R91.8 Other nonspecific abnormal finding of lung field (principal); J90 Pleural effusion, not elsewhere classified; D72.829 Elevated white blood cell count, unspecified; R94.5 Abnormal results of liver function studies